=== PATIENT | male | born 1925 | race Caucasian/White ===

== ENCOUNTER 2016-11-15 21:41 | Observation (INO) | payer MEDICARE, OTHER, MEDICAID ==
[~2016-11-15] VITALS: Ht 177.8 cm; Wt 94.2 kg
[~2016-11-15 21:41] MED LIST: ACET-171 PO; ASPI-973 PO; BISA10SU61 RC; CALC-72 PO; CETI10TA27 PO; CHOL10008 PO; CLOT30SO TOPICAL; CYAN500 PO; DOCU250C2 PO; DONE10TA42 PO; DULO30CA50 PO; FURO40TA4 PO; GABA-502 PO; GLYC-11 RC; LACT10SO27 PO; LIDO5CRE17 TOPICAL; LISI30TA5 PO; LORA0.5T PO; MAGN500T PO; MELO-253 PO; NA P133E23 RC; OXYM30SP18 NS; POLY17PO6 PO; PRAZ2CAP2 PO; PSYL660P17 PO; SENN-133 PO; TRAM50TA2 PO; VERA240C3 PO
[2016-11-15 21:47] LABS: BASOPHILS % (AUTO) 0.2 % (0-3); EOSINOPHILS % (AUTO) 2.3 % (0-5); Mean Corpuscular Hemoglobin 30.7 pg (27.0-35.0); Mean Corpuscular Volume 94.1 fL (81-100); Platelet Count 264 bil/L (150-400)
--- NOTE | 2016-11-15 21:52 | ED.REPORT ---
HPI-General Illness Date of Service Nov 15, 2016 ED Provider: Shon Tesfaye MD Pt is an 89 y/o male w/ a hx of HTN presenting to the ED via EMS due to stroke- like symptoms onset 3.5 hours prior to arrival. The patient lives at an assisted living facility ([facility]) and was found to be slumped over in his walker drooling, diaphoretic, and unresponsive. Staff noted a BP in the 70s. Upon EMS arrival, a left-sided facial droop was noted and he was alert. His O2 saturation was 80% on room air and he was placed on a non-rebreather. His facial droop, responsiveness, and BP improved on route to the ED. Upon arrival, he denies any focal numbness or weakness, speech change, vision change , chest pain, abdominal pain, headache, shortness of breath. Code status: DNR, DNI Nursing Notes Stated Complaint: STROKE Nursing Notes Reviewed: Yes Allergies: Coded Allergies: ezetimibe (Verified Adverse Reaction, Severe, 11/15/16) constipation simvastatin (Verified Adverse Reaction, Severe, 11/15/16) myalgias Scheduled Aspirin (Aspirin) 81 Mg Tablet 81 MG PO DAILY Calcium Carbonate/Vitamin D3 (Calcium 500 + Vit D 200 Tablet) 1 Each Tablet 1 EACH PO BID Cetirizine HCl (All Day Allergy) 10 Mg Tab.chew 10 MG PO DAILY Cholecalciferol (Vitamin D3) (Vitamin D3) 1,000 Unit Tab.chew 3,000 UNIT PO DAILY Clotrimazole 1% (Clotrimazole 1%) 30 Ml Solution 1 APPLIC TOPICAL BID Cyanocobalamin (Vitamin B12) 1,000 Mcg Tablet 2,000 MCG PO DAILY Docusate Sodium (Docusate Sodium) 250 Mg Capsule 250 MG PO BID Donepezil (Donepezil) 10 Mg Tablet 20 MG PO QPM Duloxetine (Duloxetine) 30 Mg Capsule.dr 30 MG PO BID Gabapentin (Gabapentin) 300 Mg Capsule 300 MG PO HS Lactulose (Lactulose) 10 Gm/15 Ml Solution 10 GM PO BID Lidocaine Cream (Lidocaine Cream) 5 Gm Cream..g. 1 APPLIC TOPICAL QID Lisinopril (Lisinopril) 30 Mg Tablet 30 MG PO BID Magnesium Oxide (Magnesium Oxide) 500 Mg Tablet 250 MG PO BID Meloxicam (Meloxicam) 15 Mg Tablet 15 MG PO DAILY Polyethylene Glycol 3350 (Miralax) 17 Gm Powd.pack 17 GM PO BID Prazosin (Prazosin) 2 Mg Capsule 2 MG PO TID Psyllium Husk (Metamucil) 3.4 Gram/5.4 Gram Powder 660 GM PO QPM Sennosides (Senna) 8.6 Mg Tablet 8.6 MG PO DAILY Tramadol (Tramadol) 50 Mg Tablet 100 MG PO TID Verapamil SR (Verapamil SR) 240 Mg Cap24h.pel 240 MG PO DAILY Scheduled PRN Acetaminophen (Acetaminophen) 500 Mg Tablet 500 MG PO Q6H PRN PRN For Fever Bisacodyl (Dulcolax Rectal) 10 Mg Supp.rect 10 MG RC DAILY PRN PRN For Cough Furosemide (Furosemide) 40 Mg Tablet 40 MG PO DAILY PRN PRN edema Glycerin (Glycerin) 1 Each Supp.rect 1 EACH RC TID PRN PRN For Constipation Lorazepam (Lorazepam) 0.5 Mg Tablet 0.25-0.5 MG PO BID PRN PRN For Agitation Na Phos,M-B/Na Phos,Di-Ba (Fleet Enema) 133 Ml Enema 133 ML RC DAILY PRN PRN For Constipation Oxymetazoline HCl (Nasal [place] Sinus) 30 Ml [place] 1 SPRAY NS PRN For Epistaxis General Time Seen by MD: 21:37 Chief Complaint Other (stroke-like) Hx Obtained From: Patient, Son, EMS Arrived By: Ambulance Sudden in Onset?: No Onset Occurred: 1 - 4 hours ago Symptom Duration: Since onset Severity: Current: No pain currently Severity: Maximum: No pain Past Medical History Past Medical History cataracts dysphagia dementia hypertension hiatal hernia GERD depression skin cancer Past Surgical History cataract surgery in L eye spinal surgery hip replacement Smoking History Former Smoker Social History Alcohol Use: Denies alcohol use Drug Use: Denies drug use Ambulatory Status Independent Review of Systems Full Review of Systems Constitutional: Denies: Chills, Fever Respiratory: Denies: Shortness of breath Cardiovascular: Denies: Chest pain GI: Denies: Abdominal pain, Nausea, Vomiting Skin: Reports Diaphoresis Neurologic: Reports: Change LOC, Denies: Focal weakness, Headache, Numbness, Slurred speech, Unable to speak, Vision change Complete sys rev & neg: except as marked. Physical Exam Vital Signs Vital Signs Date Time Temp Pulse Resp B/P Pulse Ox O2 Delivery O2 Flow Rate FiO2 11/15/16 22:54 97 Nasal Cannula 4 11/15/16 22:45 58 12 109/39 98 Non-Rebreather 8 11/15/16 22:09 71 21 151/107 100 Non-Rebreather 9 11/15/16 21:56 34.8 86 19 151/54 100 Non-Rebreather 10 Initial VS: Reviewed Head / Eyes: Atraumatic, Normocephalic, PERRL ENT: Mucous membranes moist, Conjunctiva normal, No scleral icterus Neck: Supple, Full range of motion Respiratory: Breath sounds normal, Clear to auscultation, No respiratory distress Cardiovascular: Regular rate & rhythm, Heart sounds normal, Intact distal pulses Abdomen / GI: Soft, Non-tender, No guarding, No rebound, No distention Extremities: Vascular intact, Neuro intact, No swelling, No tenderness Skin: Warm, Dry, No cyanosis Psychiatric: Mood/affect normal, Behavior normal, Normal thought content Neurologic: Oriented X3, Speech NL, No motor deficits, No sensory deficits, CN II - XII intact, Cerebellar NL Slight drift left leg - he states this is chronic Face is symmetric Interpretation & Diagnostics Lab Results Interpretation Result Diagram: 11/15/16212911/15/162129 Test 11/15/16 21:30 White Blood Count 8.7th/mm3 (3.8-10.1) Red Blood Count 4.40mil/mm3 (4.40-5.80) Hemoglobin 13.5g/dL (13.8-17.2) Hematocrit 41.4% (41.0-50.0) Mean Corpuscular Volume 94.1fL (81-100) Mean Corpuscular Hemoglobin 30.7pg (27.0-35.0) Mean Corpuscular Hemoglobin Concent 32.6% (32.0-37.0) Red Cell Distribution Width 12.7% (12.3-15.4) Platelet Count 264bil/L (150-400) Neutrophils (%) (Auto) 63.0% (40-74) Lymphocytes (%) (Auto) 24.3% (14-46) Monocytes (%) (Auto) 10.0% (4-12) Eosinophils (%) (Auto) 2.3% (0-5) Basophils (%) (Auto) 0.2% (0-3) Prothrombin Time 10.5sec (8.1-12.5) Prothromb Time International Ratio 0.98ratio Activated Partial Thromboplast Time 27.6sec (22.8-33.0) D-Dimer < 0.5mg/L (<0.50) Sodium Level 138mEq/L (134-144) Potassium Level 4.2mEq/L (3.5-5.2) Chloride Level 97mEq/L (97-108) Carbon Dioxide Level 28mmol/L (18-29) Blood Urea Nitrogen 24mg/dL (8-27) Creatinine 1.54mg/dL (0.76-1.27) Estimat Glomerular Filtration Rate 45mL/min (>59) Glucose Level 174mg/dL (60-99) Calcium Level 8.9mg/dL (8.5-10.1) Magnesium Level 2.6mg/dL (1.6-2.6) Total Bilirubin 0.2mg/dL (0.0-1.2) Aspartate Amino Transf (AST/SGOT) 21U/L (0-50) Alanine Aminotransferase (ALT/SGPT) 20U/L (0-44) Alkaline Phosphatase 149U/L (25-160) Troponin T 0.010ug/L (0.0-0.011) Total Protein 7.2g/dL (6.4-8.4) Albumin 4.0g/dL (3.4-5.0) Triglycerides Level 105mg/dL (0-149) Cholesterol Level 162mg/dL (100-199) LDL Cholesterol, Calculated 84.000mg/dL (0-99) VLDL Cholesterol 21.000mg/dL HDL Cholesterol 57mg/dL (>39) Cholesterol/HDL Ratio 2.84 (0.0-4.4) ECG Interpretation ECG Interpretation: Sinus rhythm rate 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 Moderate atrophy is present. Microvascular ischemic change is present. This study fulfills neurological imaging criteria for inclusion or exclusion of acute stroke therapies based on available published neurological guidelines. Dictated by: Damien Hensley M.D. on 11/15/2016 at 21:59 on 11/15/2016 at 21:55 Dr. Tesfaye is aware of these findings. Approved by: Damien Hensley M.D. on 11/15/2016 at 21:59 Study: Head CT no contrast Interpretation / Wet Read by: Interpret - Radiologist, Jeimy w radiologist Re-Eval/Medical Decision Med Decision/Clinical Course Elderly, mildly demented man presents after fainting upright in chair, not being discovered for some period of time. He had soaked his shirt withdrawal, and was pale, hypoxemic, and appeared to have some left-sided weakness. All of that has resolved as he was placed supine and brought here. He has no recollection, no complaints, and his exam is neurologically nonfocal. CT done stat on arrival was negative for bleeding. No other findings on labs to suggest NE or pulmonary embolus. Possibilities remain simple faints, unfortunately constrained in an upright position, versus possible seizure and postictal state. He is admitted observation status for rule out NE protocol and additional evaluation of his neurologic status. Time of Eval: 23:50 Patient Status: Condition improved, Mild relief Re-Evaluation/Progress Note: Pt rechecked. Pt informed of need for admission for further evaluation. Pt understands and agrees with plan for admission. All questions addressed. Consultation : Referral / Consult Name: Luke Cary MD Consulted With: Hospitalist Call Returned at: 23:59 Set Up Worker: Will see patient, Agrees with eval, Agrees with plan, Accepts admit Counseled Regarding: Diagnosis, Lab results, Need for admission Discharge & Departure Primary Impression: Syncope Syncope type: unspecified Qualified Code: R55 - Syncope and collapse Additional Impression: Respiratory failure Chronicity: acute Respiratory failure complication: hypoxia Qualified Code : J96.01 - Acute respiratory failure with hypoxia Disposition: ADMITTED TO HOSPITAL Discharge Condition All VS Reviewed: Yes Condition: Stable Referrals: Martha Miner MD (PCP) Guilleibsoledad Attestation Portions of this note were transcribed by Toby Zapien. I, Dr. Tesfaye personally performed the history, physical exam and medical decision-making; I reviewed and confirmed the accuracy of the information in the transcribed note. Signed by Alfa Cruz, 11/15/16 - 2229 copies to: Martha Miner MD, Christopher W MD Nov 15, 2016 21:51 TOBY ZAPIENb 26, 2017 22:08
[2016-11-15 21:56] VITALS: BP 151/54; PULSE 86; RESP 19; O2SAT 100
--- NOTE | 2016-11-15 22:01 | DRSVH ---
PROCEDURE: CT BRAIN (TPA) ([id number]) INDICATIONS: unresponsive TECHNIQUE: Noncontrast 4.5 mm thick angled axial sections acquired from the foramen magnum to the vertex, with c oronal reformats. COMPARISON: None. FINDINGS: Image quality: Good CSF spaces: Basal cisterns are patent. No extra-axial fluid collections. The ventricles are symmet kenneth in size and shape. Brain: No intracranial bleeds or masses. There is cerebral volume loss for age, with resultant vent ricular and sulcal prominence. There are periventricular and deep white matter chronic small vessel ischemic changes. There is intracranial internal carotid artery atherosclerosis. Skull and face: Calvarium and visualized facial bones appear intact, without suspicious lesions. Sinuses: Visualized sinuses and mastoids are clear. IMPRESSION: No acute intracranial abnormality is seen. Moderate atrophy is present. Microvascular isc hemic change is present. This study fulfills neurological imaging criteria for inclusion or exclusion of acute stroke therapie s based on available published neurological guidelines. Dictated by: Damien Hensley M.D. on 11/15/2016 at 21:59 on 11/15/2016 at 21:55 Dr. Tesfaye is aware of these findings. Approved by: Damien Hensley M.D. on 11/15/2016 at 21:59
[2016-11-15 22:06] LABS: INR 0.98 ratio
[2016-11-15 22:09] VITALS: BP 151/107; PULSE 71; RESP 21; O2SAT 100
[2016-11-15 22:10] LABS: TROPONIN T 0.01 ug/L (0.0-0.011)
[2016-11-15 22:45] VITALS: BP 109/39; PULSE 58; RESP 12; O2SAT 98
[2016-11-15 22:54] VITALS: O2SAT 97
[2016-11-16] MEDS ORDERED: Alum-Mag Hydrox-Simeth 30 mL Suspension PO PRN (00:35)
[2016-11-16] MEDS ORDERED: Polyethylene Glycol (PEG) 17 Gm Powder PO PRN (00:35)
[2016-11-16] MEDS ORDERED: Ondansetron 2 mg/mL 2 mL Inj IV PRN (00:35)
[2016-11-16] MEDS ORDERED: Labetalol 5 mg/mL 4 mL Inj IVPUSH PRN (00:35)
[2016-11-16 00:57] LABS: Magnesium 2.6 mg/dL (1.6-2.6)
[2016-11-16 01:37] VITALS: BP 148/77; PULSE 58; RESP 18; O2SAT 97
--- NOTE | 2016-11-16 01:43 | PCM.HPMED ---
Subjective Date of Service Nov 16, 2016 Primary Provider: Admitting Physician: Primary Care Physician: Martha Miner MD Attending Physician: Chief Complaint: left sided weakness, and decreased oxygen saturation History of Present Illness: 89 -year-old male with a history of hypertension and dementia presented to the ER via EMS after being found slumped in his chair and unresponsive at the facility where he lives, [facility]. There is no family present with the patient at the time of interview, and patient reports that his last memory is prior to episode during day and then being placed on gurney by EMS. ER report notes that patient was found to have left sided facial droop with decreased oxygen saturations.Per records, his symptoms resolved once at the ER. Pt denies any blurred or double vision, headache, dizziness, chest pain, shortness of breath, nausea, vomiting, diarrhea or myalgias. Pt states that he feels significantly improved, and feels he is at his baseline. On presentation to the ER patient had a temperature 34.8, pulse 86, respiratory rate 19, blood pressure 151/54, pulse ox 100 on 10 L Review of Systems: A comprehensive review of systems was conducted with the patient and found to be negative except as above in the History of Present Illness. Allergies Coded Allergies: ezetimibe (Verified Adverse Reaction, Severe, 11/15/16) constipation simvastatin (Verified Adverse Reaction, Severe, 11/15/16) myalgias Home Medications Per medical records from [facility] Aspirin 81 mg daily Cetirizine 5 mg daily Colace 1 tab twice a day Donepezil 10 mg, 2 tabs daily at bedtime Duloxetine 30 mg 1 caplet twice a day Gabapentin 300 mg, 1 caplet 3 times daily Hydralazine 50 mg, 1 tab 2 times daily Lactulose 15 mils twice a day Lisinopril 30 mg, 1 tab twice a day Meloxicam 7.5 mg daily MiraLAX 17 g twice a day Prazosin 2 mg, 2 caplets twice a day Tramadol 50 mg, 2 tabs 3 times daily Verapamil 240 mg 1 tab daily Furosemide 40 mg 1 tab as needed for +1 pitting edema Ventolin inhaler 1 puff every 4-6 hours as needed PMH 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 Essential hypertension Minimal cognitive impairment Gynecomastia Constipation Vitamin D deficiency Erectile dysfunction Back pain Chronic left hip pain Left foot phalanx fracture Chronic peripheral neuropathy 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, scalp, neck History of tobacco use History of basal cell carcinoma removed Lipidemia Depression Cataracts BPH Allergic rhinitis Hearing loss Surgical History Mohs surgery Right cataract surgery Back surgery 4 Cholecystectomy Total hip replacement left TURP Family History Father at age 92 Mother age 76 Social History Hx Alcohol Use: No Hx Substance Use: No Hx Tobacco Use: No Smoking Status: Former Smoker Living Arrangement: Assisted Living ([facility]) Exam Vital Signs Vital Sign - Last Date Time Temp Pulse Resp B/P Pulse Ox O2 Delivery O2 Flow Rate FiO2 11/15/16 22:54 97 Nasal Cannula 4 11/15/16 22:45 58 12 109/39 11/15/16 21:56 34.8 Exam General: No acute distress, well-developed, well-nourished, appropriately interactive HEENT: Hard of hearing. Normocephalic, atraumatic. External ears without defect. Pupils equal, round, and reactive to light and accommodation. Moist conjunctivae. Oropharynx with moist mucosa. Neck: Supple with full range of motion.No lymphadenopathy Cardiovascular: Regular rate and rhythm with no murmurs, rubs, or gallops appreciated Pulmonary: Clear to auscultation bilaterally with no crackles, wheezes, or rhonchi. Normal respiratory effort with no use of accessory muscles. Abdomen: Bowel tones present. Soft, nontender, nondistended. Extremities: No clubbing, cyanosis, edema, appreciated. Skin: Normal temperature, turgor, and texture; no rash, ulcers, or subcutaneous nodules appreciated. Psychiatric: Normal mood and affect. Alert and oriented to person, place. Neurological: Cranial nerves grossly intact. Mildly impaired muscle strength of left lower extremity at hip( pt notes this is chronic, and medical records corroborate this) Normal muscle strength, tone, and bulk for right lower extremity. Normal strength and tone of bilateral upper extremities. Reflexes, coordination, and sensory function within normal limits. Lab and Diagnostics Result Diagram: 11/15/16212911/15/162129 X-Rays, CTs and MRIs PROCEDURE: CT BRAIN (TPA) ([id number]) INDICATIONS: unresponsive TECHNIQUE: Noncontrast 4.5 mm thick angled axial sections acquired from the foramen magnum to the vertex, with coronal reformats. COMPARISON: None. FINDINGS: Image quality: Good CSF spaces: Basal cisterns are patent. No extra-axial fluid collections. The ventricles are symmetric in size and shape. Brain: No intracranial bleeds or masses. There is cerebral volume loss for age , with resultant ventricular and sulcal prominence. There are periventricular and deep white matter chronic small vessel ischemic changes. There is intracranial internal carotid artery atherosclerosis. Skull and face: Calvarium and visualized facial bones appear intact, without suspicious lesions. Sinuses: Visualized sinuses and mastoids are clear. IMPRESSION: No acute intracranial abnormality is seen. Moderate atrophy is present. Microvascular ischemic change is present. This study fulfills neurological imaging criteria for inclusion or exclusion of acute stroke therapies based on available published neurological guidelines. Dictated by: Damien Hensley M.D. on 11/15/2016 at 21:59 on 11/15/2016 at 21:55 Dr. Tesfaye is aware of these findings. Approved by: Damien Hensley M.D. on 11/15/2016 at 21:59 Assessment & Plan Possible transient ischemic attack with symptoms now resolved, present on admission, ongoing -Other possible causes include syncope or abnormal migraine, seizure -Pt had symptoms while on ASA 81mg daily -ABCD2 score is moderate, indicating 4.1 % risk of stroke in next 48hrs -Given patient's age, not starting patient on statin at this time -CT of brain in ER did not demonstrate any acute changes -MRI and ECHO scheduled for AM -Allowing for permissive hypertension, with parameters to treat with IV labetalol if sbp is greater than 220 -Swallow evaluation to be performed prior to allowing diet -PT and OT evaluation in the morning. -TSH ordered Acute kidney injury, present on admission,ongoing -Cr on admission is 1.54, per outpatient records Cr on 06/16/16 was 1.12 -Gentle hydration with NS 100mls/hrs -Continue to monitor with AM labs Chronic hypertension -Recommend holding home medications, and allowing for permissive hypertension Chronic dementia, presumed stable -Restart home medications in the AM after medication reconciliation Chronic left hip pain, present on admission, ongoing -Restart home medications in the AM after medication reconciliation Chronic issues, presumed stable: Constipation Chronic peripheral neuropathy Lumbar and cervical foraminal stenosis Depression BPH Patient is admitted under observation status with expected length of stay less than 2 midnights due to severity of presenting symptoms, risk of adverse event, and complexity of treatment plan. Code: Pt has POLST, states CPR ok, but limited intervention, DNI PCP: Dr Miner. Pain Evaluation: Adequate Pain Control VTE Mechanical Devices: Intermittant Pneumatic CD Resuscitation Status: Limited Interventions (Copy of POLST in chart. Compressions/Cardioversion OK. Do not intubate.) Limited Interventions: Compressions, Cardioversion/Defibrillation Attending Statement The patient was seen and examined together with Dr. Paris on 11/16 and I agree with the history, exam and plan as outlined in the note above. copies to: Martha Miner MD, Tara L DO Nov 16, 2016 01:43 Luke Cary MD Nov 16, 2016 01:47
[2016-11-16 01:48] VITALS: BP 118/45; PULSE 61; RESP 15; O2SAT 97
[2016-11-16] MEDS: 0.9% Sodium Chloride 1,000 ML IV SCH ×2 (02:05→10:31)
[2016-11-16 04:06] VITALS: O2SAT 99
[2016-11-16 04:54] VITALS: BP 172/79; PULSE 54; RESP 18; O2SAT 97
[2016-11-16] MEDS ORDERED: PRAZ2CAP2 PO (06:14)
[2016-11-16 06:22] LABS: BASOPHILS % (AUTO) 0.1 % (0-3); EOSINOPHILS % (AUTO) 1.3 % (0-5); MONOCYTES % (AUTO) 9.7 % (4-12); Mean Corpuscular Hemoglobin 30.3 pg (27.0-35.0); Mean Corpuscular Volume 93.5 fL (81-100); NEUTROPHILS % (AUTO) 70.6 % (40-74); Platelet Count 220 bil/L (150-400)
--- NOTE | 2016-11-16 07:28 | NUR ---
[place] [facility] [place] Patient arrived at 0130. alert and oriented hard of hearing. denies pain. on 3L via NC. 02 decreased to 2L via NC. CPOX in place. 02 maintained above 90% while sleeping. IVF infusing. bed alarm in place. patient forgetful poor historian used medical records to complete most of admission questions. Med Rec completed with [facility]. tele in place HR 50-60's.
--- NOTE | 2016-11-16 09:07 | DRSVH ---
PROCEDURE: MRI BRAIN WITHOUT CONTRAST ([id number]) INDICATIONS: concern for stroke TECHNIQUE: Non-contrast axial T1 spin echo, axial T2 fast spin echo, sagittal and axial FLAIR, coronal T2 fast s pin echo, axial gradient echo, axial diffusion and ADC through the brain. COMPARISON: CT brain 11/15/2016, 05/09/2013 FINDINGS: Image quality: Degradation by motion artifact, sequences repeated. CSF spaces: Ventricles appear symmetric in size and shape. Basal cisterns are patent. No extra-axi al fluid collections. Brain: No intracranial bleeds or mass effects. There is cerebral volume loss for age. There are pe riventricular and deep white matter chronic small vessel ischemic changes. Brainstem appears normal. Diffusion-weighted images show no acute ischemic insults. No chronic ischemic insults. Normal int ravascular flow voids are present. Skull and face: Calvarial bone marrow is normal in signal. Orbits are normal. Sinuses: Sinuses and mastoids are clear. IMPRESSION: 1. No areas of restricted diffusion to suggest acute or subacute infarct. 2. Age related cerebral atrophy and chronic deep white matter ischemic changes. Dictated by: Atul Mcmullen M.D. on 11/16/2016 at 9:01 Approved by: Atul Mcmullen M.D. on 11/16/2016 at 9:05
[2016-11-16 10:21] VITALS: BP 187/78; PULSE 64; RESP 18; O2SAT 98
[2016-11-16 10:36] VITALS: PULSE 70
--- NOTE | 2016-11-16 11:18 | DRSVH ---
PROCEDURE: US BILATERAL DUPLEX DOPPLER IMAGING OF THE CAROTIDS ([id number]) INDICATIONS: TIA TECHNIQUE: Color and pulse Doppler interrogation was performed of both carotid systems, with image documentation and velocity measurements. COMPARISON: None. FINDINGS: All stenosis calculations are based on NASCET criteria. Right side: Brachial blood pressure: 172/79 mm Hg. Common carotid artery peak systolic velocity: 87 cm/sec. Internal carotid artery peak systolic velocity: 67 cm/sec. Internal carotid artery end diastolic velocity: 17 cm/sec. External carotid artery peak systolic velocity: 56 cm/sec. ICA/CCA peak systolic ratio: 0.8. Zhang scale imaging description: Mild calcific and soft plaque Percent internal carotid artery stenosis: Less than 50% stenosis. Vertebral artery: Flow direction is antegrade. Left side: Brachial blood pressure: 148/77 mm Hg. Common carotid artery peak systolic velocity: 72 cm/sec. Internal carotid artery peak systolic velocity: 64 cm/sec. Internal carotid artery end diastolic velocity: 10 cm/sec. External carotid artery peak systolic velocity: 55 cm/sec. ICA/CCA peak systolic ratio: 0.9. Zhang scale imaging description: Mild calcific and soft plaque Percent internal carotid artery stenosis: Less than 50% stenosis. Vertebral artery: Flow direction is antegrade. IMPRESSION: Less than 50% stenosis within the proximal internal carotid arteries bilaterally. Verteb ral arterial flow is antegrade in direction. Dictated by: Gus Salinas M.D. on 11/16/2016 at 11:13 Approved by: Gus Salinas M.D. on 11/16/2016 at 11:15
--- NOTE | 2016-11-16 11:27 | NUR ---
Evaluation completed. Please go to "Notes" then click on "Assessments and Notes" (bottom left corner of screen). Then select appropriate discipline tab on top of screen.
--- NOTE | 2016-11-16 12:00 | NUR ---
Evaluation completed. Please go to "Notes" then click on "Assessments and Notes" (bottom left corner of screen). Then select appropriate discipline tab on top of screen.
[2016-11-16] MEDS ORDERED: LORazepam 0.5 mg Tablet PO PRN (13:15)
--- NOTE | 2016-11-16 13:30 | PCM.DIMED ---
Юиля Mendoza DO 11/16/16 1330: Discharge Instructions Date of Service Nov 16, 2016 Dates of Hospitalization Nov 16, 2016 at 00:36 Discharge Diagnosis Discharge Diagnosis Possible transient ischemic attack with symptoms now resolved, present on admission, Resolved. 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 Medication Instructions Please continue all your home medications Diet Heart Healthy Activity Other Call your provider Weakness (unilateral) Patient Instructions Follow-up plan Follow up with your primary care physician within [address] Miner will have access to all your imaging and labs while here in the hospital. Follow-up Provider: Martha Miner MD Follow-up with PCP in: 1 week Danitza Zelaya DO 11/17/16 1505: Discharge Instructions Attending's Statement The patient was seen and examined together with Dr. Cole on 11/16/16 and I agree with the history, exam and plan as outlined in the note above. Юлия Mnedoza DO Nov 16, 2016 13:30 Danitza Zelaya DO Nov 17, 2016 15:05
--- NOTE | 2016-11-16 14:24 | NUR ---
DISCHARGE Patient's neurovascular checks remain within normal limits. Able to stand and transfer into wheelchair for MRI with minimal assistance. Was evaluated by PT and able to ambulate with FWW SBA. Removed iv's from right and left AC, gauze dressings applied. Reviewed discharge paperwork with patient, and daughter at bedside. Gave copy of information regarding TIA to daughter. All medications remained the same. [facility] was notified and arranged transportation. Patient got dressed with minimal assistance, placed new brief on patient. Transportation arrived and wheeled patient outside to vehicle to take him home, accompanied by and daughter. Patient left with all personal belongings.
--- NOTE | 2016-11-16 16:51 | PCM.DC.MED ---
Discharge Summary Date of Service Nov 16, 2016 Dates of Hospitalization Date of Hospital Admission Nov 16, 2016 at 00:36 Date of Discharge: Nov 16, 2016 Providers: Admitting Physician: Luke Cary MD Primary Care Physician: Martha Miner MD Attending Physician: Luke Cary MD Diagnosis at Time of Discharge Diagnosis at Time of Discharge Possible transient ischemic attack with symptoms now resolved, present on admission, Resolved. 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 Procedures XRay, CTs & MRIs 11/16/16 MRI BRAIN WITHOUT CONTRAST ([id number]) IMPRESSION: 1. No areas of restricted diffusion to suggest acute or subacute infarct. 2. Age related cerebral atrophy and chronic deep white matter ischemic changes. Dictated by: Atul Mcmullen M.D. on 11/16/2016 at 9:01 Approved by: Atul Mcmullen M.D. on 11/16/2016 at 9:05 PROCEDURE: CT BRAIN (TPA) ([id number]) INDICATIONS: unresponsive TECHNIQUE: Noncontrast 4.5 mm thick angled axial sections acquired from the foramen magnum to the vertex, with coronal reformats. COMPARISON: None. FINDINGS: Image quality: Good CSF spaces: Basal cisterns are patent. No extra-axial fluid collections. The ventricles are symmetric in size and shape. Brain: No intracranial bleeds or masses. There is cerebral volume loss for age , with resultant ventricular and sulcal prominence. There are periventricular and deep white matter chronic small vessel ischemic changes. There is intracranial internal carotid artery atherosclerosis. Skull and face: Calvarium and visualized facial bones appear intact, without suspicious lesions. Sinuses: Visualized sinuses and mastoids are clear. IMPRESSION: No acute intracranial abnormality is seen. Moderate atrophy is present. Microvascular ischemic change is present. This study fulfills neurological imaging criteria for inclusion or exclusion of acute stroke therapies based on available published neurological guidelines. Dictated by: Damien Hensley M.D. on 11/15/2016 at 21:59 on 11/15/2016 at 21:55 Dr. Tesfaye is aware of these findings. Approved by: Damien Hensley M.D. on 11/15/2016 at 21:59 Date of Service: 11/16/16 BILATERAL DUPLEX DOPPLER IMAGING OF THE CAROTIDS ([id number]) IMPRESSION: Less than 50% stenosis within the proximal internal carotid arteries bilaterally. Vertebral arterial flow is antegrade in direction. Dictated by: Gus Salinas M.D. on 11/16/2016 at 11:13 Approved by: Gus Salinas M.D. on 11/16/2016 at 11:15 Brief History From history and physical by Dr. Paris dated 11/16/16: 89 -year-old male with a history of hypertension and dementia presented to the ER via EMS after being found slumped in his chair and unresponsive at the facility where he lives[facility]. There is no family present with the patient at the time of interview, and patient reports that his last memory is prior to episode during day and then being placed on gurney by EMS. ER report notes that patient was found to have left sided facial droop with decreased oxygen saturations.Per records, his symptoms resolved once at the ER. Pt denies any blurred or double vision, headache, dizziness, chest pain, shortness of breath, nausea, vomiting, diarrhea or myalgias. Pt states that he feels significantly improved, and feels he is at his baseline. On presentation to the ER patient had a temperature 34.8, pulse 86, respiratory rate 19, blood pressure 151/54, pulse ox 100 on 10 L Hospital Course 1. Possible transient ischemic attack with symptoms, present on admission, symptoms resolved by admission -Other possible causes include syncope or abnormal migraine, seizure -Pt had symptoms while on ASA 81mg daily -ABCD2 score was moderate, indicating 4.1 % risk of stroke in next 48hrs -Given patient's age, not starting patient on statin at this time -CT of brain in ER did not demonstrate any acute changes -MRI did not show stroke (see note above) - ECHO not performed, outpatient physician to follow up -Passed swallow evaluation -PT and OT said okay to discharge back to [facility]. -TSH normal 2. Acute kidney injury, present on admission, resolved -Cr on admission is 1.54, per outpatient records Cr on 06/16/16 was 1.12, now at baseline -Received gentle hydration with NS 100mls/hrs initially 3. Chronic hypertension, stable -Held home medications to allow for permissive hypertension but restarted home medications prior to discharge 4. Chronic dementia, presumed stable -Restarted all home medications upon discharge 5. Chronic left hip pain, present on admission, ongoing but stable -Restarted all home medications prior to discharge Chronic issues, presumed stable: 6. Constipation 7. Chronic peripheral neuropathy 8. Lumbar and cervical foraminal stenosis 9. Depression 10.BPH It is recommended that the patient follow up as an outpatient to have an echocardiogram performed. The patient is currently clinically stable however an echocardiogram to rule out any other heart causes towards the patient's syncopal episodes. Exam Vital Signs (Last) Date Time Temp Pulse Resp B/P Pulse Ox O2 Delivery O2 Flow Rate FiO2 11/16/16 10:36 70 11/16/16 10:21 36.3 18 187/78 98 Room Air 11/16/16 04:54 2.00 Test 11/15/16 21:30 11/16/16 05:30 Prothrombin Time 10.5sec (8.1-12.5) Prothromb Time International Ratio 0.98ratio Activated Partial Thromboplast Time 27.6sec (22.8-33.0) D-Dimer < 0.5mg/L (<0.50) Magnesium Level 2.6mg/dL (1.6-2.6) Troponin T 0.010ug/L (0.0-0.011) Triglycerides Level 105mg/dL (0-149) Cholesterol Level 162mg/dL (100-199) LDL Cholesterol, Calculated 84.000mg/dL (0-99) VLDL Cholesterol 21.000mg/dL HDL Cholesterol 57mg/dL (>39) Cholesterol/HDL Ratio 2.84 (0.0-4.4) White Blood Count 6.7th/mm3 (3.8-10.1) Red Blood Count 4.16mil/mm3 (4.40-5.80) Hemoglobin 12.6g/dL (13.8-17.2) Hematocrit 38.9% (41.0-50.0) Mean Corpuscular Volume 93.5fL (81-100) Mean Corpuscular Hemoglobin 30.3pg (27.0-35.0) Mean Corpuscular Hemoglobin Concent 32.4% (32.0-37.0) Red Cell Distribution Width 12.5% (12.3-15.4) Platelet Count 220bil/L (150-400) Neutrophils (%) (Auto) 70.6% (40-74) Lymphocytes (%) (Auto) 18.2% (14-46) Monocytes (%) (Auto) 9.7% (4-12) Eosinophils (%) (Auto) 1.3% (0-5) Basophils (%) (Auto) 0.1% (0-3) Sodium Level 140mEq/L (134-144) Potassium Level 4.5mEq/L (3.5-5.2) Chloride Level 102mEq/L (97-108) Carbon Dioxide Level 29mmol/L (18-29) Blood Urea Nitrogen 22mg/dL (8-27) Creatinine 1.24mg/dL (0.76-1.27) Estimat Glomerular Filtration Rate 58mL/min (>59) Glucose Level 98mg/dL (60-99) Calcium Level 8.7mg/dL (8.5-10.1) Total Bilirubin 0.3mg/dL (0.0-1.2) Aspartate Amino Transf (AST/SGOT) 18U/L (0-50) Alanine Aminotransferase (ALT/SGPT) 16U/L (0-44) Alkaline Phosphatase 134U/L (25-160) Total Protein 5.9g/dL (6.4-8.4) Albumin 3.6g/dL (3.4-5.0) Thyroid Stimulating Hormone (TSH) 1.480uIU/mL (0.450-4.500) Free Thyroxine 1.16ng/dL (0.82-1.77) Discharge Medications Discharge Medications Aspirin (Aspirin) 81 Mg Tablet 81 MG PO DAILY (Reported) Calcium Carbonate/Vitamin D3 (Calcium 500 + Vit D 200 Tablet) 1 Each Tablet 1 EACH PO BID (Reported) Cetirizine HCl (All Day Allergy) 10 Mg Tab.chew 10 MG PO DAILY (Reported) Cholecalciferol (Vitamin D3) (Vitamin D3) 1,000 Unit Tab.chew 3,000 UNIT PO DAILY (Reported) Clotrimazole 1% (Clotrimazole 1%) 30 Ml Solution 1 APPLIC TOPICAL BID (Reported ) Cyanocobalamin (Vitamin B12) 1,000 Mcg Tablet 2,000 MCG PO DAILY (Reported) Docusate Sodium (Docusate Sodium) 250 Mg Capsule 250 MG PO BID (Reported) Donepezil (Donepezil) 10 Mg Tablet 20 MG PO QPM (Reported) Duloxetine (Duloxetine) 30 Mg Capsule.dr 30 MG PO BID (Reported) Gabapentin (Gabapentin) 300 Mg Capsule 300 MG PO HS (Reported) Lactulose (Lactulose) 10 Gm/15 Ml Solution 10 GM PO BID (Reported) Lidocaine Cream (Lidocaine Cream) 5 Gm Cream..g. 1 APPLIC TOPICAL QID (Reported ) Lisinopril (Lisinopril) 30 Mg Tablet 30 MG PO BID (Reported) Magnesium Oxide (Magnesium Oxide) 500 Mg Tablet 250 MG PO BID (Reported) Meloxicam (Meloxicam) 15 Mg Tablet 15 MG PO DAILY (Reported) Polyethylene Glycol 3350 (Miralax) 17 Gm Powd.pack 17 GM PO BID (Reported) Prazosin (Prazosin) 2 Mg Capsule 4 MG PO BID (Reported) Psyllium Husk (Metamucil) 3.4 Gram/5.4 Gram Powder 660 GM PO QPM (Reported) Sennosides (Senna) 8.6 Mg Tablet 8.6 MG PO DAILY (Reported) Tramadol (Tramadol) 50 Mg Tablet 100 MG PO TID (Reported) Verapamil SR (Verapamil SR) 240 Mg Cap24h.pel 240 MG PO DAILY (Reported) As needed Acetaminophen (Acetaminophen) 500 Mg Tablet 500 MG PO Q6H PRN PRN For Fever ( Reported) Bisacodyl (Dulcolax Rectal) 10 Mg Supp.rect 10 MG RC DAILY PRN PRN For Cough ( Reported) Furosemide (Furosemide) 40 Mg Tablet 40 MG PO DAILY PRN PRN edema (Reported) Glycerin (Glycerin) 1 Each Supp.rect 1 EACH RC TID PRN PRN For Constipation ( Reported) Lorazepam (Lorazepam) 0.5 Mg Tablet 0.25-0.5 MG PO BID PRN PRN For Agitation ( Reported) Na Phos,M-B/Na Phos,Di-Ba (Fleet Enema) 133 Ml Enema 133 ML RC DAILY PRN PRN For Constipation (Reported) Oxymetazoline HCl (Nasal [place] Sinus) 30 Ml [place] 1 SPRAY NS PRN For Epistaxis ( Reported) Additional med instructions Please continue all your home medications Followup Plan Follow-up plan Follow up with your primary care physician within [address] Miner will have access to all your imaging and labs while here in the hospital. Echocardiogram recommended in the outpatient setting. Discharge Diet: Heart Healthy Discharge Activity: Other Follow-up Provider: Martha Miner MD Follow-up with PCP in: 1 week Attending Statement The patient was seen and examined together with Dr. Mendoza on 11/16/16 and I have added additional information to the note above. copies to: Martha Miner MD, Janice M DO Nov 16, 2016 16:51 Danitza Zelaya DO Nov 17, 2016 15:09
[2016-11-16] MEDS ORDERED: Polyethylene Glycol (PEG) 17 Gm Powder PO SCH (20:30)
[2016-11-16] MEDS ORDERED: DULoxetine 30 mg DR Capsule PO SCH (20:30)
[2016-11-17] MEDS ORDERED: Verapamil SR 240 mg ER12 Tablet PO SCH (08:30)
== END 2016-11-16 14:31 ==
LOC: SED 21:41 → MPC 11-16 00:36
PROVIDERS: ADMIT Hospitalist; ATTEND Hospitalist
DX: R55 Syncope and collapse (principal); R61 Generalized hyperhidrosis; R29.810 Facial weakness; N17.9 Acute kidney failure, unspecified; I10 Essential (primary) hypertension; F03.90 Unspecified dementia, unspecified severity, without behavioral disturbance, psychotic disturbance, mood disturbance, and anxiety; M25.552 Pain in left hip; Z96.642 Presence of left artificial hip joint; G62.9 Polyneuropathy, unspecified; Z79.82 Long term (current) use of aspirin
CPT/HCPCS: 36415; 70450; 70551; 80053; 80061; 83036; 83735; 84439; 84443; 84484; 85025; 85379; 85610; 85730; 93005; 93880; 97161; 99285; G0378; G8978; G8979; G8980; G8996; G8997; J7030

== ENCOUNTER 2017-01-17 08:18 | Emergency (ER) | payer MEDICARE, OTHER, MEDICAID ==
[~2017-01-17] VITALS: Ht 177.8 cm; Wt 94.5 kg
[2017-01-17 08:28] VITALS: BP 137/70; RESP 11
--- NOTE | 2017-01-17 08:45 | ED.REPORT ---
HPI-Facial Injury Date of Service Jan 17, 2017 ED Provider: Flaquito Wilson MD History of Present Illness: There is no template for nosebleed, so this template was used. The pt is an 89 y/o male w/ a hx of hypertension and dysphagia presenting to the ED complaining of epistaxis onset 0700. The epistaxis began suddenly, without any trauma. He has had a episode of epistaxis a year ago, but it did not cause him to go the hospital. He denies any cough or cold symptoms, dizziness, headaches, or lightheadedness. Nursing Notes Stated Complaint: NOSE BLEED Chief Complaint: ENT & Mouth Nursing Notes Reviewed: Yes ([employer], [place] Control[employer] not reconciled) Allergies: Coded Allergies: ezetimibe (Verified Adverse Reaction, Severe, 11/15/16) constipation simvastatin (Verified Adverse Reaction, Severe, 11/15/16) myalgias Scheduled Aspirin (Aspirin) 81 Mg Tablet 81 MG PO DAILY Calcium Carbonate/Vitamin D3 (Calcium 500 + Vit D 200 Tablet) 1 Each Tablet 1 EACH PO BID Cetirizine HCl (All Day Allergy) 10 Mg Tab.chew 10 MG PO DAILY Cholecalciferol (Vitamin D3) (Vitamin D3) 1,000 Unit Tab.chew 3,000 UNIT PO DAILY Clotrimazole 1% (Clotrimazole 1%) 30 Ml Solution 1 APPLIC TOPICAL BID Cyanocobalamin (Vitamin B12) 1,000 Mcg Tablet 2,000 MCG PO DAILY Docusate Sodium (Docusate Sodium) 250 Mg Capsule 250 MG PO BID Donepezil (Donepezil) 10 Mg Tablet 20 MG PO QPM Duloxetine (Duloxetine) 30 Mg Capsule.dr 30 MG PO BID Gabapentin (Gabapentin) 300 Mg Capsule 300 MG PO HS Lactulose (Lactulose) 10 Gm/15 Ml Solution 10 GM PO BID Lidocaine Cream (Lidocaine Cream) 5 Gm Cream..g. 1 APPLIC TOPICAL QID Lisinopril (Lisinopril) 30 Mg Tablet 30 MG PO BID Magnesium Oxide (Magnesium Oxide) 500 Mg Tablet 250 MG PO BID Meloxicam (Meloxicam) 15 Mg Tablet 15 MG PO DAILY Polyethylene Glycol 3350 (Miralax) 17 Gm Powd.pack 17 GM PO BID Prazosin (Prazosin) 2 Mg Capsule 4 MG PO BID Psyllium Husk (Metamucil) 3.4 Gram/5.4 Gram Powder 660 GM PO QPM Sennosides (Senna) 8.6 Mg Tablet 8.6 MG PO DAILY Tramadol (Tramadol) 50 Mg Tablet 100 MG PO TID Verapamil SR (Verapamil SR) 240 Mg Cap24h.pel 240 MG PO DAILY Scheduled PRN Acetaminophen (Acetaminophen) 500 Mg Tablet 500 MG PO Q6H PRN PRN For Fever Bisacodyl (Dulcolax Rectal) 10 Mg Supp.rect 10 MG RC DAILY PRN PRN For Cough Furosemide (Furosemide) 40 Mg Tablet 40 MG PO DAILY PRN PRN edema Glycerin (Glycerin) 1 Each Supp.rect 1 EACH RC TID PRN PRN For Constipation Lorazepam (Lorazepam) 0.5 Mg Tablet 0.25-0.5 MG PO BID PRN PRN For Agitation Na Phos,M-B/Na Phos,Di-Ba (Fleet Enema) 133 Ml Enema 133 ML RC DAILY PRN PRN For Constipation Oxymetazoline HCl (Nasal [place] Sinus) 30 Ml [place] 1 SPRAY NS PRN For Epistaxis General Time Seen by Provider: 08:54 Chief Complaint Nose bleed Hx Obtained From: Patient Arrived By: Ambulance Onset Occurred: 1 - 4 hours ago Symptom Duration: Since onset Recent Healthcare: No recent hospitalization, Recent doctor visit Similar Sx Previous: Yes Past Medical History Past Medical History cataracts dysphagia dementia hypertension hiatal hernia GERD depression skin cancer Past Surgical History cataract surgery in L eye spinal surgery hip replacement Smoking History Former Smoker Social History Alcohol Use: Denies alcohol use Drug Use: Denies drug use Ambulatory Status Independent Review of Systems Constitutional: Denies: Chills, Fever Ears / Nose / Throat: Reports: Nose bleeding, Denies: Sore throat Complete sys rev & neg: except as marked. Respiratory: Denies: Non-productive cough Physical Exam Initial Vital Signs Vital Signs (First) Date Time Temp Pulse Resp B/P Pulse Ox O2 Delivery O2 Flow Rate FiO2 01/17/17 08:28 36.8 82 11 137/70 Initial VS: Reviewed, Vital signs normal Head / Eyes: Atraumatic, Normocephalic ENT: Airway patent, Mucous membranes moist Potential source on septum wall, no active bleeding Neck: Atraumatic, Supple, Full range of motion Neurologic: Oriented X3, Speech NL General/Constitutional: Awake, Alert Respiratory / Chest: No respiratory distress Wheezing / Retractions: Positive: Wheeze insp/exp diffuse Cardiovascular: Heart rate NL, Regular rhythm, Heart sounds NL Skin: Atraumatic, Color NL Abdomen: Atraumatic, Soft Back: Atraumatic, Full range of motion Procedures Epistaxis Management Epistaxis Management: Bupivacaine w/ epinephrine Also cauterized using silver nitrate Time: 09:00 Procedure Performed by: ED physician Consent / Setup / Site Prep: Consent from patient, Hand hygiene observed Side and Location of Bleed: Nare left - anterior Pre-medication and Procedure: Oxymetazoline, Silver nitrate applied Post-Procedure / Complications: Bleeding stopped, No complications, Patient stable, Tolerated procedure well Re-Eval/Medical Decision Med Decision/Clinical Course This is an 89-year-old male presents [facility] with a left-sided epistaxis that started this morning. He is on aspirin therapy, but no other anticoagulants. He denies any recent trauma or infection. He has had a nosebleed about a year ago but which she did not seek emergency care. Otherwise been doing well. On exam he has a little bit of bleeding from left nares but I suspect is anterior in origin. She received oxymetazoline plus. Again with epinephrine via mucosal atomization device and a nose clamp, and on reevaluation there is no ongoing hemorrhage, but there does not be a small area of friable tissue on the medial septum-this was then cauterized with silver nitrate. Patient was observed, and hemostasis was maintained. The patient is being discharged back to where [facility], with instructions use oxymetazoline daily for the next 3 days, some nasal saline Next 12 weeks, and to hold aspirin for the next 3-4 days. Routine precautions reviewed Source of Hx: Old records Re-Evaluation/Progress : Time of Eval: 09:18 Re-Evaluation/Progress Note: Pt rechecked. Informed pt of plan for treatment. Pt understands and agrees with plan for treatment. F/U instructions and RTER warnings given. All questions addressed. Differential Diagnosis: Positive: Epistaxis, anterior, Negative: Abrasion, Animal bite, Basilar skull fracture, Burn, 1st degree, Burn, 2nd degree, Gun shot wound, Laceration, [place] II fractures, [place] III fractures, Septal hematoma Counseled Regarding: Diagnosis, Lab results, Need for follow-up, When/why to return to ED Discharge & Departure Impression: Primary Impression: Epistaxis Disposition: Home Discharge Condition All VS Reviewed: Yes Condition: Stable Additional Instructions: 1. Use oxymetazolin nasal spray 2 sprays each nostril daily for the next 3 days. 2. I recommend using a nasal saline sprays 2 sprays each nostril 3 times a day for 10 days. This keeps the nose moist and allows the mucosa to heal faster. 3. Skip your aspirin for the next 3 days. 4. If bleeding does re-start, spray nostril with 2 sprays of oxymetazolin and apply nasal clamp for a full 20 minutes. If bleeding does not stop, return again to the ED. Referrals: Martha Miner MD (PCP) Scribe Attestation Portions of this note were transcribed by Shaun Rosas and Sophie Ryan. I, Dr. Wilson personally performed the history, physical exam and medical decision- making; I reviewed and confirmed the accuracy of the information in the transcribed note. Signed by: Shaun Rosas and Ava Hayden, 01/17/17 and 0884. copies to: Martha Miner MD, Matthew F MD Jan 17, 2017 08:45 Shaun Rosas Jan 17, 2017 08:52 SOPHIE RYAN Jan 17, 2017 09:11
[2017-01-17] MEDS ORDERED: Bupivacaine-MPF 0.5% W/EPI 30 mL Inj NERVEBLOCK ONE (08:50)
[2017-01-17] MEDS ORDERED: Silver Nitrate Stick TOPICAL ONE (09:45)
[2017-01-17 09:53] VITALS: BP 154/62; PULSE 63; RESP 16
[2017-01-17 11:43] VITALS: BP 148/93; PULSE 68; RESP 14
== END 2017-01-17 11:55 | disposition home or self-care (01) ==
LOC: EDBD 08:18 → SED 08:18
DX: R04.0 Epistaxis (principal); K21.9 Gastro-esophageal reflux disease without esophagitis; I10 Essential (primary) hypertension; Z79.82 Long term (current) use of aspirin; Z87.891 Personal history of nicotine dependence; Z88.8 Allergy status to other drugs, medicaments and biological substances